=== PATIENT | male | born 1990 | race Caucasian/White ===

== ENCOUNTER 2018-01-24 23:35 | Emergency (ER) | payer OTHER ==
[~2018-01-24 23:35] MED LIST: CLIN150C14 PO
[2018-01-24 23:37] VITALS: BP 147/87; PULSE 137; RESP 20; TEMP 97.7; O2SAT 97
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
[2018-01-25] MEDS ORDERED: IOHEXOL 350 MG/ML 10 ML VIAL (for RAD DIAG) IVCONTRAST ONE (02:01)
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
[2018-01-25] MEDS ORDERED: PERC5TAB12 PO (02:52)
== END 2018-01-25 03:07 | disposition home or self-care (01) ==
LOC: NEPC 23:35
DX: M79.671 Pain in right foot (principal); M79.672 Pain in left foot; M54.5 Low back pain; F17.200 Nicotine dependence, unspecified, uncomplicated
CPT/HCPCS: 70450; 71260; 72125; 73630; 74177; 99284; Q9967